=== PATIENT | male | born 1985 | race Caucasian/White ===

== ENCOUNTER 2020-04-28 11:03 | Emergency (ER) | payer OTHER ==
[~2020-04-28] VITALS: Ht 160 cm; Wt 59.0 kg
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
--- NOTE | 2020-04-28 12:32 | Diagnostic Imaging Report ---
PROCEDURE: CT head and CT cervical spine without contrast. TECHNIQUE: Multiple contiguous axial images were obtained through the brain and cervical spine without the use of intravenous contrast. Sagittal and coronal reformations through the cervical spine were then performed. Auto Exposure Controls were utilized during the CT exam to meet ALARA standards for radiation dose reduction. INDICATION: Fall and dizziness with head and neck injury. COMPARISON: No prior studies are available for comparison. FINDINGS: CT HEAD: Ventricles and sulci are within normal limits. No sulcal effacement or midline shift is detected. No acute intra-axial or extra-axial hemorrhage is detected. Cisterns are patent. Visualized paranasal sinuses show mild mucosal thickening of ethmoid air cells and the maxillary sinuses. IMPRESSION: No acute intracranial process is detected. CT CERVICAL SPINE: Alignment is normal. No fracture or subluxation is identified. Prevertebral tissues are normal. Odontoid is intact. IMPRESSION: No acute bony abnormality is detected. Dictated by: Dictated on workstation # [id number]
[2020-04-28] MEDS ORDERED: NAPR-1071 PO (12:47)
[2020-04-28] MEDS ORDERED: METH-313 PO (12:47)
[2020-04-28 12:53] VITALS: BP 140/82
== END 2020-04-28 12:53 | disposition home or self-care (01) ==
LOC: EDUNIT# 11:03 → ER 11:06
DX: S06.0X0A Concussion without loss of consciousness, initial encounter (principal); S16.1XXA Strain of muscle, fascia and tendon at neck level, initial encounter; V89.2XXA Person injured in unspecified motor-vehicle accident, traffic, initial encounter
CPT/HCPCS: 70450; 72125

== ENCOUNTER 2021-08-08 14:59 | Emergency (ER) | payer MEDICAID ==
[~2021-08-08] VITALS: Ht 160 cm; Wt 59.0 kg
[~2021-08-08 14:59] MED LIST: METH-313 PO; NAPR-1071 PO
[2021-08-08 15:20] VITALS: BP 103/77
[2021-08-08] MEDS ORDERED: KETOROLAC 30 MG/ML VIAL IM ONE (15:30)
[2021-08-08] MEDS ORDERED: oxyCODONE/APAP 5/325MG (PERCOCET 5) TABLET PO ONE (15:30)
--- NOTE | 2021-08-08 15:35 | ED GU-Male ---
General Chief Complaint: - Reproductive Stated Complaint: LLQ PAIN Source: patient Exam Limitations: no limitations History of Present Illness Date Seen by Provider: Aug 08, 2021 Time Seen by Provider: 15:32 Initial Comments To ER with left inguinal and testicular pain. This is been an ongoing issue for him for which he has been seen by [facility] urology, [facility] emergency room over the course of the past few weeks (though I cannot find record of this in [facility]). He finished a 14-day course of doxycycline about 3 days ago. Comes in today with worsening of pain in the left testicle. No fevers or chills or vomiting. He states that it swells and becomes very tender. Timing/Duration: constant Severity/Quality: moderate Location: unknown Radiation: none Activities at Onset: none Prior Genitourinary Problems: none Allergies and Home Medications Allergies Coded Allergies: No Known Drug Allergies (Unverified , 08/08/21) Patient Home Medication List Home Medication List Reviewed: Yes Hydrocodone/Acetaminophen (Hydrocodone-Acetamin 5-325 mg) 1 Each Tablet, 1 TAB PO Q4H PRN for PAIN-MODERATE (5-7) Prescribed by: HERON ROSEN on 08/08/21 1551 Ibuprofen (Ibuprofen) 800 Mg Tablet, 800 MG PO Q8H PRN for PAIN Prescribed by: HERON ROSEN on 08/08/21 1551 Levofloxacin (Levofloxacin) 500 Mg Tablet, 500 MG PO DAILY Prescribed by: HERON ROSEN on 08/08/21 1551 Methocarbamol (Robaxin-750) 750 Mg Tablet, 750 MG PO Q4H PRN for PAIN-MODERATE (5-7) Prescribed by: HERON ROSEN on 04/28/20 1247 Naproxen (Naprosyn) 500 Mg Tablet, 500 MG PO BID PRN for PAIN-MODERATE (5-7) Prescribed by: HERON ROSEN on 04/28/20 1247 Review of Systems Review of Systems Constitutional: see HPI EENTM: see HPI Respiratory: no symptoms reported Cardiovascular: no symptoms reported Genitourinary: see HPI Musculoskeletal: no symptoms reported Skin: no symptoms reported Psychiatric/Neurological: No Symptoms Reported Endocrine: No Symptoms Reported Hematologic/Lymphatic: No Symptoms Reported Past Kbhgogp-Arvjyr-Fofwzg Hx Patient Social History Tobacco Use?: Yes Tobacco type used: Cigarettes Smoking Status: Current Everyday Smoker Use of E-Cig and/or Vaping dev: No Substance use?: Yes Substance type: Marijuana Alcohol Use?: No Pt feels they are or have been: No Immunizations Up To Date Influenza Vaccine Up-to-Date: No; Not Current COVID19 Vaccine Loan [employer]: [employer] Seasonal Allergies Seasonal Allergies: No Past Medical History Surgeries: No Respiratory: No Cardiac: No Neurological: No Genitourinary: No Gastrointestinal: No Musculoskeletal: No Endocrine: No HEENT: No Cancer: No Psychosocial: No Integumentary: No Physical Exam Vital Signs Vital Signs - First Documented 08/08/21 15:20 Temp 36.2 Pulse 98 Resp 18 B/P (MAP) 103/77 (86) Pulse Ox 98 O2 Delivery Room Air Capillary Refill : Height, Weight, BMI Height: '" Weight: lbs. oz. kg; 23.00 BMI Method: General Appearance: WD/WN, no apparent distress Neck: non-tender, full range of motion Respiratory: no respiratory distress, no accessory muscle use Gastrointestinal: normal bowel sounds, non tender, soft Male: inguinal tenderness, testicular tenderness (Left testicle is tender to p alpation particularly posterior aspect of the testicle where there is a probable epididymis. The overlying scrotal skin is normal) Extremities: normal range of motion Neurologic/Psychiatric: alert, normal mood/affect, oriented x 3 Skin: normal color, warm/dry Progress/Results/Core Measures Suspected Sepsis SIRS Temperature: Pulse: Respiratory Rate: Laboratory Tests 08/08/21 15:40: White Blood Count 10.0 Blood Pressure / Mean: Laboratory Tests 08/08/21 15:40: Creatinine 1.03, Platelet Count 318 Results/Orders Lab Results Laboratory Tests Test 08/08/21 15:40 Range/Units White Blood Count 10.0 4.3-11.0 10^3/uL Red Blood Count 4.78 4.30-5.52 10^6/uL Hemoglobin 15.2 13.3-17.7 g/dL Hematocrit 44 40-54 % Mean Corpuscular Volume 93 80-99 fL Mean Corpuscular Hemoglobin 32 25-34 pg Mean Corpuscular Hemoglobin Concent 34 32-36 g/dL Red Cell Distribution Width 13.0 10.0-14.5 % Platelet Count 318 130-400 10^3/uL Mean Platelet Volume 9.1 9.0-12.2 fL Immature Granulocyte % (Auto) 0 % Neutrophils (%) (Auto) 81 H 42-75 % Lymphocytes (%) (Auto) 11 L 12-44 % Monocytes (%) (Auto) 5 0-12 % Eosinophils (%) (Auto) 2 0-10 % Basophils (%) (Auto) 0 0-10 % Neutrophils # (Auto) 8.1 H 1.8-7.8 10^3/uL Lymphocytes # (Auto) 1.1 1.0-4.0 10^3/uL Monocytes # (Auto) 0.5 0.0-1.0 10^3/uL Eosinophils # (Auto) 0.2 0.0-0.3 10^3/uL Basophils # (Auto) 0.0 0.0-0.1 10^3/uL Immature Granulocyte # (Auto) 0.0 0.0-0.1 10^3/uL Sodium Level 137 135-145 MMOL/L Potassium Level 4.0 3.6-5.0 MMOL/L Chloride Level 103 98-107 MMOL/L Carbon Dioxide Level 25 21-32 MMOL/L Anion Gap 9 5-14 MMOL/L Blood Urea Nitrogen 15 7-18 MG/DL Creatinine 1.03 0.60-1.30 MG/DL Estimat Glomerular Filtration Rate 95 BUN/Creatinine Ratio 15 Glucose Level 138 H 70-105 MG/DL Calcium Level 9.1 8.5-10.1 MG/DL C-Reactive Protein High Sensitivity 0.12 0.00-0.50 MG/DL My Orders Orders - HERON ROSEN APRN Ketorolac Injection (Toradol Injection) (08/08/21 15:30) Oxycodone/Apap 5/325mg Tablet (Percocet (08/08/21 15:30) Ua Culture If Indicated (08/08/21 15:35) Drug Screen Stat (Urine) (08/08/21 15:35) Chlamydia Trachomatis Urine (08/08/21 15:35) Neis Joe Dna Urine Test (08/08/21 15:35) Cbc With Automated Diff (08/08/21 15:35) Hs C Reactive Protein (08/08/21 15:35) Basic Metabolic Panel (08/08/21 15:35) Ed Iv/Invasive Line Start (08/08/21 15:35) Ceftriaxone 1 Gm Pre-Mix (Rocephin 1 Gm (08/08/21 16:00) Lactated Ringers (Lr 1000 Ml Iv Solution (08/08/21 17:00) Urine Culture (08/08/21 16:53) Medications Given in ED Current Medications Medications Dose Ordered Sig/Fern Route Start Time Stop Time Status Last Admin Dose Admin Ceftriaxone Sodium/Dextrose 50 ml @ 100 mls/hr ONCE ONCE IV 08/08/21 16:00 08/08/21 16:29 DC 08/08/21 15:55 100 MLS/HR Ketorolac Tromethamine 30 mg ONCE ONCE IM 08/08/21 15:30 08/08/21 15:31 DC 08/08/21 15:35 30 MG Oxycodone/ Acetaminophen 1 tab ONCE ONCE PO 08/08/21 15:30 08/08/21 15:31 DC 08/08/21 15:35 1 TAB Vital Signs/I&O 08/08/21 15:20 Temp 36.2 Pulse 98 Resp 18 B/P (MAP) 103/77 (86) Pulse Ox 98 O2 Delivery Room Air Capillary Refill : Departure Communication (Admissions) [id number]-patient did pull up his "my [employer] account" on his phone showing us the results of a CT abdomen pelvis which had no acute abnormalities and a scrotal ultrasound from 08/05/2020 showing left epididymitis with varicocele and reactive left inguinal lymphadenopathy. He finished his doxycycline 3 days ago which would have been on that day, he is not on any other antibiotics at this time. Impression Primary Impression: Left epididymitis Additional Impression: Left varicocele Disposition: 01 HOME, SELF-CARE Condition: Stable Departure-Patient Inst. Decision time for Depature: 15:47 Referrals: NO,LOCAL PHYSICIAN (PCP) Primary Care Physician JULITA OBREIN MD Patient Instructions: Epididymitis Add. Discharge Instructions: 1. Elevate the scrotum as much as possible for the next few days with somewhat tighter underwear or a towel rolled up beneath the scrotum while sitting. Ice p ack to the scrotum several times a day. Anti-inflammatory and pain medication as directed. Antibiotic as directed. Follow-up with your regular doctor or urology within the next 1 to 2 weeks. Return to ER for fevers or any other concerns. All discharge instructions reviewed with patient and/or family. Voiced understanding. Scripts Hydrocodone/Acetaminophen (Hydrocodone-Acetamin 5-325 mg) 1 Each Tablet 1 TAB PO Q4H PRN for PAIN-MODERATE (5-7), #20 TAB Prov: HERON ROSEN APRN 08/08/21 Ibuprofen (Ibuprofen) 800 Mg Tablet 800 MG PO Q8H PRN for PAIN, #30 TAB 0 Refills Prov: HERON ROSEN APRN 08/08/21 Levofloxacin (Levofloxacin) 500 Mg Tablet 500 MG PO DAILY, #10 TAB Prov: HERON ROSEN APRN 08/08/21 Work/School Note: Work Release Form Date Seen in the Emergency Department: Aug 08, 2021 Return to Work: Aug 11, 2021 HERON ROSEN APRN Aug 08, 2021 15:35
[2021-08-08] MEDS ORDERED: ACHD5005 PO (15:51)
[2021-08-08] MEDS ORDERED: LEVO500T81 PO (15:51)
[2021-08-08] MEDS ORDERED: IBUP-1780 PO (15:51)
[2021-08-08] MEDS ORDERED: cefTRIAXone 1 GM PRE-MIX 50 ML IV ONE (16:00)
[2021-08-08 16:05] LABS: BASOPHILS % (AUTO) 0 % (0-10); EOSINOPHILS # (AUTO) 0.2 10^3/uL (0.0-0.3); EOSINOPHILS % (AUTO) 2 % (0-10); HEMATOCRIT 44 % (40-54); HEMOGLOBIN 15.2 g/dL (13.3-17.7); LYMPHOCYTES # (AUTO) 1.1 10^3/uL (1.0-4.0); LYMPHOCYTES % (AUTO) 11 % (12-44); MEAN CORPUSCULAR HEMOGLOBIN 32 pg (25-34); MEAN CORPUSCULAR HGB CONC 34 g/dL (32-36); MEAN CORPUSCULAR VOLUME 93 fL (80-99); MEAN PLATELET VOLUME 9.1 fL (9.0-12.2); MONOCYTES # (AUTO) 0.5 10^3/uL (0.0-1.0); MONOCYTES % (AUTO) 5 % (0-12); NEUTROPHILS # (AUTO) 8.1 10^3/uL (1.8-7.8); NEUTROPHILS % (AUTO) 81 % (42-75); PLATELET COUNT 318 10^3/uL (130-400)
[2021-08-08 16:17] LABS: CALCIUM 9.1 MG/DL (8.5-10.1)
[2021-08-08 16:21] LABS: CREATININE SERUM 1.03 MG/DL (0.60-1.30)
[2021-08-08] MEDS ORDERED: LACTATED RINGERS 1,000 ML IV SCH (17:00)
[2021-08-08 17:42] LABS: BILIRUBIN,URINE NEGATIVE (NEGATIVE); CLARITY,URINE CLEAR; COLOR,URINE YELLOW; GLUCOSE, URINE (UA) NEGATIVE (NEGATIVE); KETONES,URINE NEGATIVE (NEGATIVE); LEUKOCYTE ESTERASE ,URINE NEGATIVE (NEGATIVE); NITRITE,URINE NEGATIVE (NEGATIVE); PROTEIN,URINE NEGATIVE (NEGATIVE)
[2021-08-08 17:48] LABS: BACTERIA,URINE NEGATIVE /HPF; WBC,URINE RARE /HPF
[2021-08-08 17:53] LABS: AMPHETAMINE SCREEN, URINE POSITIVE (NEGATIVE); BARBITURATE SCREEN URINE NEGATIVE (NEGATIVE); BENZODIAZEPINES SCREEN URINE NEGATIVE (NEGATIVE); CANNABINOID SCREEN, URINE POSITIVE (NEGATIVE); COCAINE SCREEN URINE NEGATIVE (NEGATIVE); METHADONE STAT NEGATIVE (NEGATIVE); METHAMPHETAMINE SCREEN URINE S POSITIVE (NEGATIVE); OPIATE SCREEN URINE NEGATIVE (NEGATIVE); OXYCODONE STAT POSITIVE (NEGATIVE); PROPOXYPHENE STAT NEGATIVE (NEGATIVE); TRICYCLIC ANTIDEPRESSANTS SCRE NEGATIVE (NEGATIVE)
== END 2021-08-08 17:34 | disposition home or self-care (01) ==
LOC: EDUNIT# 14:59 → ER 15:03
DX: N45.1 Epididymitis (principal); I86.1 Scrotal varices; F17.210 Nicotine dependence, cigarettes, uncomplicated
CPT/HCPCS: 36415; 80048; 80306; 81000; 85025; 86141; 87088; 87491; 87591